=== PATIENT | female | born 1965 | race Caucasian/White ===

== ENCOUNTER 2022-05-22 07:59 | Inpatient (IN) ==
[2022-05-22] MEDS ORDERED: cefTRIAXone 1 gm/50 mL D5W 1 GM/50 ML BAG IV ONE (10:00)
[2022-05-22] MEDS ORDERED: Lactated Ringers 1000 ml BAG 1,000 ML IV ONE (10:00)
[2022-05-22] MEDS ORDERED: Azithromycin 500 mg/250 ml NS 500 MG/250 ML BAG IVPB ONE (10:00)
[2022-05-22 10:45] LABS: ABS Lymphocytes 0.5 10^3/ul (1.0-4.8); ABS Monocytes 1.1 10^3/ul (0-0.8); ABS Neutrophils 15.7 10^3/ul (1.5-7.7); Eosinophil % 0.1 %; Hematocrit 39 % (35-47); Hemoglobin 12.7 g/dL (12.0-16.0); Mean Corpuscular HGB Conc 32 g/dL (31-36); Mean Corpuscular Hemoglobin 30 pg (27-31); Mean Corpuscular Volume 92 fL (80-97); Mean Platelet Volume 8.2 fL (7.4-10.4); Platelet Count 224 10^3/uL (150-450); Red Blood Count 4.29 10^6 /uL (3.70-4.87); Red Cell Distribution Width 15 % (10-15); White Blood Count 17.4 10^3/uL (3.5-10.8)
[2022-05-22] MEDS ORDERED: Morphine 4 MG/ML VIAL (1 ml) IV ONE (11:29)
[2022-05-22] MEDS ORDERED: Albuterol/Ipratropium NEB.SOL (2.5/0.5 MG) 3 ML NEB.SOLN INH ONE (11:29)
[2022-05-22] MEDS ORDERED: methylPREDNISolone SOD SUCC 125 mg 2 ML VIAL IV ONE (11:30)
[2022-05-22 11:37] LABS: Albumin 3.8 g/dL (3.2-5.2); Albumin/Globulin Ratio 1.6 (1-3); C Reactive Protein 153.99 mg/L (<8.01); Calcium 8.8 mg/dL (8.6-10.3); Creatinine, Serum 0.79 mg/dL (0.51-0.95); Globulin 2.4 g/dL (2-4); Total Bilirubin 1.1 mg/dL (0.2-1.0); Total Protein 6.2 g/dL (6.4-8.9); eGFR CKD-EPI 87.7 (>60)
[2022-05-22 14:15] LABS: High Sensitivity Troponin 1 Hr 13 pg/mL (<15)
[2022-05-22] MEDS ORDERED: Albuterol HFA INHALER 8 gm MDI INH PRN (14:49)
[2022-05-22] MEDS ORDERED: Iohexol 350 (CONTRAST) 500 ML MDV IV ONE (15:01)
[2022-05-22] MEDS: Albuterol/Ipratropium NEB.SOL (2.5/0.5 MG) 3 ML NEB.SOLN INH SCH ×2 (15:07→20:44)
[2022-05-22 15:08] LABS: Magnesium 1.9 mg/dL (1.9-2.7)
[2022-05-22 15:22] LABS: High Sensitivity Troponin 3 Hr 13 pg/mL (<15)
[2022-05-22 15:58] LABS: Erythrocyte Sed Rate 23 mm/Hr (0-29)
[2022-05-22] MEDS ORDERED: Piperacillin/Tazobac ADVAN 3.375 GM in NS 0.9% 100 ml BAG 100 ML IV ONE (15:59)
[2022-05-22] MEDS ORDERED: Zosyn per Pharmacy NOTE FOLLOW UP SCH (16:00)
[2022-05-22] MEDS: Enoxaparin 40 MG/0.4 ML SYR SUBCUT SCH (16:34)
[2022-05-22] MEDS: ZOSYN 3.375 GM Q8H per EXTENDED INFUSION IV SCH (20:38)
[2022-05-23] MEDS: Enoxaparin 40 MG/0.4 ML SYR SUBCUT SCH ×3 (00:10→20:15)
[2022-05-23] MEDS: Albuterol/Ipratropium NEB.SOL (2.5/0.5 MG) 3 ML NEB.SOLN INH SCH ×4 (01:29→19:41)
[2022-05-23] MEDS: ZOSYN 3.375 GM Q8H per EXTENDED INFUSION IV SCH ×3 (04:34→20:15)
[2022-05-23 06:46] LABS: ABS Basophils 0.1 10^3/ul (0-0.2); ABS Lymphocytes 0.7 10^3/ul (1.0-4.8); ABS Monocytes 0.8 10^3/ul (0-0.8); ABS Neutrophils 18.4 10^3/ul (1.5-7.7); Hematocrit 37 % (35-47); Hemoglobin 12.3 g/dL (12.0-16.0); Lymphocyte % 3.6 %; Mean Corpuscular HGB Conc 34 g/dL (31-36); Mean Corpuscular Hemoglobin 31 pg (27-31); Mean Corpuscular Volume 92 fL (80-97); Platelet Count 200 10^3/uL (150-450); Red Blood Count 3.96 10^6 /uL (3.70-4.87); Red Cell Distribution Width 15 % (10-15)
[2022-05-23 06:56] LABS: Calcium 8.8 mg/dL (8.6-10.3); Creatinine, Serum 0.76 mg/dL (0.51-0.95); Magnesium 2.2 mg/dL (1.9-2.7); Potassium 3.7 mmol/L (3.5-5.0); eGFR CKD-EPI 91.9 (>60)
[2022-05-23] MEDS ORDERED: cefTRIAXone 1 gm/50 mL D5W 1 GM/50 ML BAG IV SCH (09:00)
[2022-05-24] MEDS: Albuterol/Ipratropium NEB.SOL (2.5/0.5 MG) 3 ML NEB.SOLN INH SCH ×4 (01:37→19:27)
[2022-05-24 05:31] LABS: ABS Lymphocytes 1.7 10^3/ul (1.0-4.8); ABS Monocytes 0.6 10^3/ul (0-0.8); ABS Neutrophils 11.6 10^3/ul (1.5-7.7); Eosinophil % 0.3 %; Hematocrit 34 % (35-47); Hemoglobin 10.8 g/dL (12.0-16.0); Mean Corpuscular HGB Conc 32 g/dL (31-36); Mean Corpuscular Hemoglobin 30 pg (27-31); Mean Corpuscular Volume 92 fL (80-97); Mean Platelet Volume 8.4 fL (7.4-10.4); Platelet Count 220 10^3/uL (150-450); Red Blood Count 3.66 10^6 /uL (3.70-4.87); Red Cell Distribution Width 15 % (10-15)
[2022-05-24] MEDS: ZOSYN 3.375 GM Q8H per EXTENDED INFUSION IV SCH ×2 (05:32→19:00)
[2022-05-24 05:54] LABS: Calcium 8.5 mg/dL (8.6-10.3); Creatinine, Serum 0.83 mg/dL (0.51-0.95); Magnesium 2.2 mg/dL (1.9-2.7); Potassium 3.6 mmol/L (3.5-5.0); eGFR CKD-EPI 82.7 (>60)
[2022-05-24] MEDS: methylPREDNISolone SOD SUCC 40 mg/ml 1 ml VIAL IV SCH ×2 (09:02→19:00)
[2022-05-24] MEDS: Enoxaparin 40 MG/0.4 ML SYR SUBCUT SCH ×2 (09:04→21:16)
[2022-05-25] MEDS: Albuterol/Ipratropium NEB.SOL (2.5/0.5 MG) 3 ML NEB.SOLN INH SCH ×2 (01:02→07:36)
[2022-05-25] MEDS: methylPREDNISolone SOD SUCC 40 mg/ml 1 ml VIAL IV SCH ×2 (01:53→08:59)
[2022-05-25] MEDS: ZOSYN 3.375 GM Q8H per EXTENDED INFUSION IV SCH ×2 (01:58→10:11)
[2022-05-25 05:55] LABS: ABS Lymphocytes 0.5 10^3/ul (1.0-4.8); ABS Monocytes 0.2 10^3/ul (0-0.8); ABS Neutrophils 8.5 10^3/ul (1.5-7.7); Hematocrit 36 % (35-47); Hemoglobin 11.6 g/dL (12.0-16.0); Lymphocyte % 5.2 %; Mean Corpuscular HGB Conc 32 g/dL (31-36); Mean Corpuscular Hemoglobin 29 pg (27-31); Mean Corpuscular Volume 92 fL (80-97); Mean Platelet Volume 8.7 fL (7.4-10.4); Nucleated Red Blood Cells % 0.1; Platelet Count 198 10^3/uL (150-450); Red Blood Count 3.97 10^6 /uL (3.70-4.87); Red Cell Distribution Width 16 % (10-15); White Blood Count 9.2 10^3/uL (3.5-10.8)
[2022-05-25 06:11] LABS: Calcium 8.5 mg/dL (8.6-10.3); Creatinine, Serum 0.72 mg/dL (0.51-0.95); Magnesium 2.3 mg/dL (1.9-2.7); Potassium 4.6 mmol/L (3.5-5.0); eGFR CKD-EPI 98.1 (>60)
[2022-05-25] MEDS: Enoxaparin 40 MG/0.4 ML SYR SUBCUT SCH (09:01)
[2022-05-25 10:47] VITALS: BP 148/86
== END 2022-05-25 12:09 | disposition home or self-care (01) | DRG 139 ==
LOC: EDHOLD 07:59 → ED 07:59 → SUATTDRO 13:30 → SSU 15:58
PROVIDERS: ADMIT Family Medicine; ATTEND Hospitalist